=== PATIENT | male | born 1980 | race Caucasian/White ===

== ENCOUNTER 2017-12-16 19:34 | Emergency (ER) | payer OTHER ==
[~2017-12-16] VITALS: Ht 175.3 cm; Wt 81.6 kg
[~2017-12-16 19:34] MED LIST: ADDERALL 30 MG30 MG PO; AMPHETAMINE SAL20 M1 PO; CENTRUM SILVER1 EAC2 PO; FISH OIL 1,001000 M2 PO; FLAX OIL1000 MG PO; IBUPROFEN 800800 M1 PO; LEXAPRO20 MG PO; MOBIC15 MG PO; SERTRALINE HCL50 MG PO; XARELTO15 MG PO; XARELTO20 MG PO
[2017-12-16 20:13] LABS: ABSOLUTE BASOPHILS 0.1 thou/uL (0.0-0.2); ABSOLUTE EOSINOPHILS 0.2 thou/uL (0.0-0.7); ABSOLUTE LYMPHOCYTES 2.6 thou/uL (0.8-5.3); ABSOLUTE MONOCYTES 0.7 thou/uL (0.0-1.2); ABSOLUTE NEUTROPHILS 5.5 thou/uL (1.6-8.1); BASOPHILS 0.6 %; EOSINOPHILS 1.9 %; HEMATOCRIT 41.1 % (42.0-52.0); LYMPHOCYTES 28.6 %; MCH 32.6 pg (26.0-34.0); MCV 95.7 fL (80.0-100.0); MONOCYTES 7.9 %; MPV 7.4 fl. (7.2-11.1); NUCLEATED RBCS 0 /100WBC; PLATELET COUNT* 240 thou/uL (150-400)
[2017-12-16 20:22] LABS: CALCIUM 8.8 mg/dL (8.5-10.1); CREATININE 1.1 mg/dL (0.6-1.3); INR 1.1; PROTIME 10.3 Seconds (9.20-11.50)
[2017-12-16 20:27] LABS: ALBUMIN 3.9 g/dL (3.4-5.0); TOTAL BILIRUBIN 0.2 mg/dL (<0.1-1.0); TOTAL PROTEIN 6.8 g/dL (6.4-8.2)
[2017-12-16] MEDS ORDERED: FLEXERIL PO (22:24)
[2017-12-16] MEDS ORDERED: PERCOCET 7.5-31 EACH PO (22:24)
[2017-12-16 23:17] VITALS: BP 133/90
== END 2017-12-16 23:19 | disposition home or self-care (01) ==
LOC: M.ERS 19:34
PROVIDERS: Emergency Medicine
DX: S49.82XA Other specified injuries of left shoulder and upper arm, initial encounter (principal); X58.XXXA Exposure to other specified factors, initial encounter; Y93.89 Activity, other specified; Y92.89 Other specified places as the place of occurrence of the external cause; Y99.8 Other external cause status